=== PATIENT | male | born 1965 | race African-American/Black ===

== ENCOUNTER 2016-04-30 10:24 | Emergency (ER) | payer BC ==
[2016-04-30 10:36] VITALS: BP 163/108
--- NOTE | 2016-04-30 10:41 | ER Document Report ---
ED Medical Screen (RME) - General Stated Complaint: LEG PAIN Time seen by provider: 10:40 Mode of Arrival: Wheelchair Information source: Patient Notes: 51-year-old male developed back pain several weeks ago that radiated down his sciatic nerve. Last week he started having pain in the lateral right lower leg. Last night he started not being able to straighten his leg out without severe pain on the outside of his right lower leg. No history of DVT. No swelling to the leg. Now can't stand on it due to pain. He did have back pain this morning. Physical Exam - Vital signs Vitals: Temp Pulse Resp BP Pulse Ox 98.0 F 89 18 163/108 H 99 04/30/16 10:35 04/30/16 10:35 04/30/16 10:35 04/30/16 10:35 04/30/16 10:35 Course - Vital Signs Vital signs: Temp Pulse Resp BP Pulse Ox 98.0 F 89 18 163/108 H 99 04/30/16 10:35 04/30/16 10:35 04/30/16 10:35 04/30/16 10:35 04/30/16 10:35
--- NOTE | 2016-04-30 11:33 | ER Document Report ---
ED Neck/Back Problem - General Chief Complaint: Leg Pain Stated Complaint: LEG PAIN Mode of Arrival: Wheelchair Notes: Patient is complaining of pain in his right leg and right buttock region. He says it began as pain, like a cramp, in the right lateral calf about 3 weeks ago. About 2 weeks ago, patient noted pain in the right buttock region. These pains go and come but have gotten worse. Last night, the pain increased significantly and the patient had difficulty even walking to the bathroom during the night. Movement seems to worsen the pains. Patient had a similar episode about 3 years ago that was diagnosed as sciatica. It resolved on its own. Patient has been taking ibuprofen without relief of symptoms. He saw a local practitioner who told him that he was dehydrated. 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 His work does involve twisting and lifting heavy objects and bending a lot. TRAVEL OUTSIDE OF THE [place] IN LAST 30 DAYS: No - Related Data Allergies/Adverse Reactions: No Known Allergies Allergy (Verified 04/30/16 10:45) Past Medical History - General Information source: Patient - Social History Smoking Status: Never Smoker Cigarette use (# per day): No Chew tobacco use (# tins/day): No Frequency of alcohol use: None Drug Abuse: None Family History: Reviewed & Not Pertinent Patient has suicidal ideation: No Patient has homicidal ideation: No - Past Medical History Cardiac Medical History: Reports: Hx Hypertension Endocrine Medical History: Reports: Hx Diabetes Mellitus Type 2 Review of Systems - Review of Systems Notes: REVIEW OF SYSTEMS: CONSTITUTIONAL : Denies fever. EENT: Denies eye, ear, nose or mouth or throat pain or other symptoms. CARDIOVASCULAR: Denies chest pain. RESPIRATORY: Denies cough, chest congestion, or shortness of breath. GASTROINTESTINAL: Denies abdominal pain or nausea, vomiting, or diarrhea. GENITOURINARY: Denies difficulty or painful urinating, urinary frequency, blood in urine. MUSCULOSKELETAL: See history of present illness. Denies neck pain. Denies joint pain or swelling. SKIN: Denies rash or skin lesions. NEUROLOGICAL: Denies LOC or altered mental status. Denies headache. Denies sensory loss or motor deficits. Denies loss of control of her bladder or bowels. No paralysis. ALL OTHER SYSTEMS REVIEWED AND NEGATIVE. Physical Exam - Vital signs Vitals: Temp Pulse Resp BP Pulse Ox 98.0 F 89 18 163/108 H 99 04/30/16 10:35 04/30/16 10:35 04/30/16 10:35 04/30/16 10:35 04/30/16 10:35 Interpretation: Hypertensive - Notes Notes: PHYSICAL EXAMINATION: GENERAL: Well-appearing, in no acute distress. Appears to have apparently severe pain, primarily of the proximal lateral right lower leg, when he attempts to move his right leg, either up onto the stretcher or down from the stretcher. HEAD: Atraumatic, normocephalic. EYES: Pupils equal round and reactive to light, extraocular movements intact. ENT: oropharynx clear without exudates. Moist mucous membranes. NECK: Normal range of motion, supple. LUNGS: Breath sounds clear and equal bilaterally. HEART: Regular rate and rhythm without murmurs. ABDOMEN: Soft, nontender. No guarding or rebound. No masses. No bruits heard. BACK: No tenderness throughout entire back. EXTREMITIES: Normal range of motion without pain. Negative Homans bilaterally. No leg swelling or any other findings suggestive of blood clots. Excellent pulses in both feet. [place] toes with brisk capillary refill. NEUROLOGICAL: Normal speech, normal gait. Normal sensory, motor, and reflex exams. Very brisk and symmetrical patellar reflexes bilaterally. Negative clonus. Awake, alert, and oriented x3. Cranial nerves normal. PSYCH: Normal mood, normal affect. SKIN: Warm, dry, no rashes. Course - Re-evaluation Re-evalutation: 04/30/16 20:15 From the patient's history and physical examination, I don't think he has a herniated disc or anything that an MRI will help investigate at this time. I suggested a course of steroids for a week along with muscle relaxer and pain medicines and try to take at least a couple of days off to see if we can resolve his symptoms and that way. If he is not better in a week, advised him to return here for us to reevaluate and we will consider whether an MRI is indicated at that time. Certainly, if his symptoms worsen or he develops new symptoms in the meantime, he is advised to return here immediately for reevaluation. - Vital Signs Vital signs: Temp Pulse Resp BP Pulse Ox 98.0 F 89 18 163/108 H 99 04/30/16 10:35 04/30/16 10:35 04/30/16 10:35 04/30/16 10:35 04/30/16 10:35 Discharge - Discharge Clinical Impression: Leg pain, right Sciatica Qualifiers: Laterality: right Qualified Code(s): M54.31 - Sciatica, right side Condition: Stable Disposition: HOME, SELF-CARE Additional Instructions: Leg Pain, Nonspecific We did not find an obvious cause for your leg pain. There's no sign of blood clot, infection, or other serious disease. Possible causes of vague leg pain include muscle or joint inflammation, disc disease in the lower back, pressure on the nerves in the back, or reduced blood flow through the arteries of the leg. Rest the leg. Pain can be eased with an antiinflammatory pain medicine such as ibuprofen. If the pain involves a small area, a heating pad might help. Call the doctor or return if the leg becomes swollen, weak, discolored, or increasingly painful, or if you develop any other significant change in your health. Sciatica Your symptoms suggest "sciatica." The pain of sciatica typically radiates down the leg. Numbness in the foot or calf may also occur. Sciatica is caused by irritation of the sciatic nerve or its branches. The irritation can be due to a herniated disk in the spine, swelling and inflammation in the muscles surrounding the sciatic nerve, or direct injury of the nerve itself. Most cases of sciatica will resolve with medical treatment. Bed rest is usually recommended initially. Surgery is only necessary when the condition will not improve with rest and antiinflammatory medication. Muscle relaxers are often given if muscle soreness is present. A CAT scan of the back may be performed if a herniated disk is suspected. Re-examination is necessary if you develop increasing numbness, localized weakness in the foot or ankle, or if the pain does not respond to rest. LOW BACK PAIN: Three out of every four people will have an episode of disabling back pain during their lifetime. Most commonly the pain is due to straining of the muscles and ligaments in the low back. Usual treatment includes: (1) Rest on a firm surface. Avoid lying on your stomach. (2) Ice pack the painful area. After a few days, gentle heat may be used intermittently to relax the area, or ice packs can be continued. (3) Medication may be needed -- muscle relaxers and antiinflammatory medicines are commonly used. (4) As the back improves, exercises are prescribed to strengthen the back and abdominal muscles. Your doctor will advise you on the proper care for your back at each stage in your recovery. You may be better in a few days -- or healing may take several weeks. If new symptoms of a "herniated disc" (radiation of pain, numbness, or tingling down the back of the leg or weakness in the leg) occur, you should be re-examined. Further testing may be necessary. ORAL NARCOTIC MEDICATION: You have been given a prescription for pain control. This medication is a narcotic. It's best taken with food, as nausea can result if taken on an empty stomach. Don't operate machinery or drive within six hours of taking this medication. Do not combine this medicine with alcohol, or with any medication which can cause sedation (such as cold tablets or sleeping pills) unless you get permission from the physician. Narcotics tend to cause constipation. If possible, drink plenty of fluids and eat a diet high in fiber and fruits. MUSCLE RELAXERS: Muscle relaxing medications are usually prescribed for acute muscle spasm or injury to the neck and back. They are often combined with antiinflammatory pain medication for increased relief. You may stop the muscle relaxer when the pain and stiffness have improved. Start the medication again if spasms recur. Muscle relaxers may cause drowsiness, especially with the first dose. Do not operate machinery or drive while under the effects of the medication. Most muscle relaxers last up to 24 hours. Do not combine the medication with alcohol. STEROID MEDICATION: You have been given a medicine of the cortisone/steroid class. This medication is used to control inflammation or allergy. It is usually only given for a short period of time, until the acute process subsides. There are usually no side effects from short-term use of cortisone-like medications. Some persons feel an increased sense of well-being and are not sleepy at bedtime. Long-term use of cortisone medications is best avoided, unless required for a severe condition. If your condition does not remit, or relapses after the course of corticosteroid medication, you should consult your physician. ICE PACKS: Apply ice packs frequently against the painful area. Many different schedules are recommended, such as "20 minutes on, 20 minutes off" or "one hour ice, two hours rest." If you need to work, you may need to go longer between ice treatments. You should plan to have the area ice packed AT LEAST one fourth of the time. The ice should be applied over the wrap, tape, or splint, or over a layer of cloth -- not directly against the skin. Some ice bags have a built-in cloth and can be put directly on the skin. WARM PACKS: After approximately two days, apply gentle heat (such as a heating pad or hot water bottle) for about 20 to 30 minutes about every two hours -- at least four times daily. Warmth and elevation will help you make a more rapid recovery , and will ease the pain considerably. Do not use HOT heat, and never apply heat for longer than 30 minutes. The continuous heat can invisibly damage skin and muscles -- even when no burn is seen on the surface. Damaged muscles can make you MORE sore. FOLLOW-UP CARE: If you have been referred to a physician for follow-up care, call the physician s office for an appointment as you were instructed or within the next two days. If you experience worsening or a significant change in your symptoms, notify the physician immediately or return to the Emergency Department at any time for re-evaluation. If you are not improving any in one week, you should follow-up with your primary care physician or you may return for us to reevaluate your condition. I will be here working at 9 AM next Friday and Friday. If your condition worsens significantly at any time, return for immediate reevaluation. Conditions such as difficulty controlling her bowels or your bladder, inability to move your right leg inability to walk, are reasons to return for immediate reevaluation. Prescriptions: Methocarbamol [Robaxin 500 mg Tablet] 1,000 mg PO QID #60 tablet Oxycodone HCl/Acetaminophen [Percocet 5-325 mg Tablet] 1 - 2 tab PO Q4H PRN #25 tablet PRN Reason: Prednisone [Deltasone 10 mg Tablet] 10 mg PO ASDIR PRN #28 tablet PRN Reason: Forms: Return to Work Referrals: [Primary Care Provider] - Follow up as needed
== END 2016-04-30 11:41 | disposition home or self-care (01) ==
LOC: ER 10:24
DX: M54.31 Sciatica, right side (principal); M79.661 Pain in right lower leg; M25.551 Pain in right hip; E11.9 Type 2 diabetes mellitus without complications; I10 Essential (primary) hypertension
CPT/HCPCS: 99283

== ENCOUNTER 2017-07-09 06:57 | Emergency (ER) | payer SELFPAY ==
[2017-07-09] MEDS ORDERED: PROCHLORPERAZINE EDISYLATE INJ 10 MG/2 ML VIAL IV ONE (07:31)
[2017-07-09] MEDS ORDERED: NORMAL SALINE 1000 ML 1,000 ML IV ONE (07:31)
[2017-07-09] MEDS ORDERED: DIPHENHYDRAMINE HCL 50 MG/ML VIAL IV ONE (07:33)
[2017-07-09] MEDS ORDERED: ACETAMINOPHEN 325 MG TABLET PO ONE (07:33)
--- NOTE | 2017-07-09 07:40 | ER Document Report ---
ED General - General Chief Complaint: Flu Symptoms Stated Complaint: FLU LIKE SYMPTOMS Time Seen by Provider: 07/09/17 07:29 Mode of Arrival: Ambulatory Information source: Patient Notes: 52-year-old male complaining of gradual onset of 5/5 all over headache and bilateral hip pain at 1130 last night. He has a nonproductive cough that started at 5 PM. No sore throat runny nose. No chest pain or shortness of breath. No dominant pain. No nausea vomiting or diarrhea. No genitalia or groin pain he is a diabetic and hypertensive and occasionally takes lisinopril 20 mg that belongs to his because he could not afford the [employer] insurance and went up 300%. TRAVEL OUTSIDE OF THE [place] IN LAST 30 DAYS: No - HPI Onset: Yesterday - 11:30 PM Onset/Duration: Gradual - Related Data Allergies/Adverse Reactions: No Known Allergies Allergy (Verified 04/30/16 10:45) Past Medical History - General Information source: Patient - Social History Smoking Status: Never Smoker Frequency of alcohol use: None Drug Abuse: None Lives with: Spouse/Significant other Family History: Reviewed & Not Pertinent - Past Medical History Cardiac Medical History: Reports: Hx Hypertension Endocrine Medical History: Reports: Hx Diabetes Mellitus Type 2 - Metformin Surgical Hx: Negative Review of Systems - Review of Systems Constitutional: See HPI EENT: No symptoms reported Cardiovascular: No symptoms reported Respiratory: No symptoms reported Gastrointestinal: No symptoms reported Genitourinary: No symptoms reported Male Genitourinary: No symptoms reported Musculoskeletal: See HPI Skin: No symptoms reported Hematologic/Lymphatic: No symptoms reported Neurological/Psychological: See HPI Physical Exam - Vital signs Vitals: Temp Pulse Resp BP Pulse Ox 99.1 F 111 H 16 205/120 H 96 07/09/17 07:02 07/09/17 07:02 07/09/17 07:02 07/09/17 07:02 07/09/17 07:02 Interpretation: Normal - General General appearance: Appears well, Alert, Anxious In distress: None - HEENT Head: Normocephalic, Atraumatic Eyes: Normal Pupils: PERRL Tympanic membrane: Normal Neck: Supple. No: Lymphadenopathy, Thyromegally - Respiratory Respiratory status: No respiratory distress Chest status: Nontender Breath sounds: Normal Chest palpation: Normal - Cardiovascular Rhythm: Regular Heart sounds: Normal auscultation Murmur: No - Abdominal Inspection: Normal Distension: No distension Bowel sounds: Normal Tenderness: Nontender Organomegaly: No organomegaly - Back Back: Normal, Nontender - Extremities General upper extremity: Normal inspection, Nontender, Normal color, Normal ROM , Normal temperature General lower extremity: Normal inspection, Nontender, Normal color, Normal ROM , Normal temperature, Normal weight bearing. No: Christie's sign - Neurological Neuro grossly intact: Yes Cognition: Normal Orientation: AAOx4 Turner Coma Scale Eye Opening: Spontaneous [place] Coma Scale Verbal: Oriented [place] Coma Scale Motor: Obeys Commands [place] Coma Scale Total: 15 Speech: Normal Motor strength normal: LUE, RUE, LLE, RLE Sensory: Normal - Psychological Associated symptoms: Normal affect, Normal mood - Skin Skin Temperature: Warm Skin Moisture: Dry Skin Color: Normal Course - Re-evaluation Re-evalutation: 07/09/17 10:51 Chest x-ray shows possible early pneumonia in the right, other labs are negative. Wiill tx for pneumonia, start back on his metformin and lisinopril. 07/10/17 19:50 - Vital Signs Vital signs: Temp Pulse Resp BP Pulse Ox 99.1 F 111 H 23 H 185/115 H 96 07/09/17 11:03 07/09/17 07:02 07/09/17 10:59 07/09/17 10:59 07/09/17 10:59 - Laboratory Result Diagrams: 07/09/17 07:54 07/09/17 07:54 Laboratory results interpreted by me: 07/09/17 07/09/17 07/09/17 07:54 07:54 07:54 Hgb 13.4 L MCV 78 L MCH 25.9 L RDW 14.3 H Seg Neutrophils % 80.4 H Lymphocytes % 7.3 L APTT 40.0 H Creatinine 1.40 H Est GFR (Non-Af Amer) 53 L Glucose 169 H Urine Protein Urine Glucose (UA) 07/09/17 09:27 Hgb MCV MCH RDW Seg Neutrophils % Lymphocytes % APTT Creatinine Est GFR (Non-Af Amer) Glucose Urine Protein 100 H Urine Glucose (UA) 50 H Discharge - Discharge Clinical Impression: Cough, Elevated serum creatinine Pneumonia Qualifiers: Pneumonia type: due to unspecified organism Laterality: bilateral Lung location : lower lobe of lung Qualified Code(s): J18.1 - Lobar pneumonia, unspecified organism Hip pain Qualifiers: Laterality: right Qualified Code(s): M25.551 - Pain in right hip Hypertension Qualifiers: Hypertension type: essential hypertension Qualified Code(s): I10 - Essential ( primary) hypertension Diabetes Qualifiers: Diabetes mellitus type: type 2 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: unspecified terminal system operator insulin use status Diabetes mellitus complication status: without complication Qualified Code(s): E11.9 - Type 2 diabetes mellitus without complications Condition: Good Disposition: HOME, SELF-CARE Instructions: Acetaminophen, Angiotensin Converting Enzyme Inhibitor Medication ([facility]), Diabetes ([facility]), Glucophage ([facility]), High Blood Pressure, Requiring Treatment ([facility]), Levofloxacin, Pneumonia ([facility]) Additional Instructions: plenty of fluids to er if worse levofloxacin for the pneumonia take the metformin 500mg twice a day take the lisinopril 20mg daily you need to see family pracitice or internal medicine doctor for recheck- your creatinine (kidney function) is elevated) copy of all labs Prescriptions: Levofloxacin [Levaquin] 750 mg PO DAILY #4 tablet Lisinopril [Zestril] 20 mg PO DAILY #30 tablet Metformin HCl [Glucophage] 500 mg PO BID #60 tablet Forms: Return to Work Referrals: ALESSIO FAROOQ MD [ACTIVE STAFF] - Follow up in 1 week
--- NOTE | 2017-07-09 07:57 | RADIOLOGY REPORT (SQ) ---
EXAM DESCRIPTION: CHEST PA/LAT CLINICAL HISTORY: cough, tachycardia COMPARISON: None. FINDINGS: Frontal and lateral views of the chest. Tortuosity of the thoracic aorta. Heart is not enlarged. Eventration of the right hemidiaphragm. Hazy right basilar opacity. No pneumothorax or pleural effusion. Degenerative change of the spine. Leads overlie the chest. Upper abdominal soft tissues are unremarkable. IMPRESSION: 1. Hazy right basilar opacity. This may be related to low lung volumes and atelectasis however developing pneumonic process could produce a similar appearance. Continued radiographic follow-up to resolution recommended.
[2017-07-09 08:38] LABS: ABSOLUTE LYMPHOCYTES (AUTO) 0.5 10^3/uL (0.5-4.7); ABSOLUTE MONOCYTES (AUTO) 0.7 10^3/uL (0.1-1.4); BASOPHILS % (AUTO) 0.4 % (0-2); EOSINOPHILS % (AUTO) 0.6 % (0-6); HEMOGLOBIN 13.4 g/dL (13.5-17.0); LYMPHOCYTES % (AUTO) 7.3 % (13-45); MEAN CORPUSCULAR HEMOGLOBIN 25.9 pg (27.0-33.4); MEAN CORPUSCULAR HGB CONC 33.4 g/dL (32.0-36.0); MEAN CORPUSCULAR VOLUME 78 fl (80-97); MONOCYTES % (AUTO) 11.3 % (3-13); PLATELET COUNT 260 10^3/uL (150-450); RED BLOOD COUNT 5.16 10^6/uL (4.35-5.55); RED CELL DISTRIBUTION WIDTH 14.3 % (11.5-14.0); SEGMENTED NEUTROPHILS % (AUTO) 80.4 % (42-78); TOTAL CELLS COUNTED % (AUTO) 100 %; WHITE BLOOD COUNT 6.2 10^3/uL (4.0-10.5)
[2017-07-09 08:39] LABS: PROTHROMBIN TIME 12.8 SEC (11.4-15.4)
--- NOTE | 2017-07-09 08:41 | RADIOLOGY REPORT (SQ) ---
EXAM DESCRIPTION: CT HEAD WITHOUT COMPLETED DATE/TIME: 07/09/2017 7:47 am REASON FOR STUDY: headache COMPARISON: CT brain 09/17/2009 TECHNIQUE: Axial images acquired through the brain without intravenous contrast. Images reviewed wi th bone, brain and subdural windows. Images stored on PACS. All CT scanners at this facility use dose modulation, iterative reconstruction, and/or weight based d osing when appropriate to reduce radiation dose to as low as reasonably achievable (ALARA). [facility]: Dose Right [facility]: CareDose [facility]: Dose Right [facility]: Teradose 4D [facility]: Arrayent RADIATION DOSE: CT Rad equipment meets quality standard of care and radiation dose reduction techniq ues were employed. CTDIvol: 64.6 mGy. DLP: 1163 mGy-cm. mGy. LIMITATIONS: None. FINDINGS: VENTRICLES: Normal size and contour. CEREBRUM: No masses. No hemorrhage. No midline shift. No evidence for acute infarction. Normal gra y/white matter differentiation. No areas of low density in the white matter. CEREBELLUM: No masses. No hemorrhage. No alteration of density. No evidence for acute infarction. EXTRAAXIAL SPACES: No fluid collections. No masses. ORBITS AND GLOBE: No intra- or extraconal masses. Normal contour of globe without masses. CALVARIUM: No fracture. PARANASAL SINUSES: No fluid or mucosal thickening. SOFT TISSUES: No mass or hematoma. OTHER: No other significant finding. IMPRESSION: NORMAL BRAIN CT WITHOUT CONTRAST. EVIDENCE OF ACUTE STROKE: NO. COMMENT: Quality ID # [id number]: Final reports with documentation of one or more dose reduction techniques (e.g., Automated exposure control, adjustment of the mA and/or kV according to patient size, use of iterative reconstruction technique) TECHNICAL DOCUMENTATION: JOB ID: [id number] [employer]- All Rights Reserved Reading location - IP/workstation name: ON LICENSE OF [facility]
[2017-07-09 08:54] LABS: ALANINE AMINOTRANSFERASE 33 U/L (21-72); ALBUMIN 4.2 g/dL (3.5-5.0); ALKALINE PHOSPHATASE 86 U/L (38-126); ANION GAP 13 (5-19); ASPARTATE AMINO TRANSFERASE 28 U/L (17-59); BILIRUBIN,DIRECT 0.2 mg/dL (0.0-0.4); BILIRUBIN,TOTAL 0.3 mg/dL (0.2-1.3); BLOOD UREA NITROGEN 14 mg/dL (7-20); CALCIUM 9.4 mg/dL (8.4-10.2); CARBON DIOXIDE 26 mmol/L (22-30); CHLORIDE 100 mmol/L (98-107); GLUCOSE 169 mg/dL (75-110); POTASSIUM 4.5 mmol/L (3.6-5.0); TOTAL PROTEIN 7.1 g/dL (6.3-8.2)
[2017-07-09] MEDS ORDERED: AZITHROMYCIN 250 MG TABLET PO ONE (08:56)
[2017-07-09] MEDS ORDERED: KETOROLAC TROMETHAMINE INJ/PF 30 MG/1 ML SDV IV ONE (08:57)
--- NOTE | 2017-07-09 09:01 | EKG REPORT ---
SEVERITY:- ABNORMAL ECG - SINUS RHYTHM BIATRIAL ABNORMALITIES LEFT VENTRICULAR HYPERTROPHY ANTERIOR Q WAVES, POSSIBLY DUE TO LVH : Confirmed by: Manju Payne 09-Jul-2017 09:00:46
[2017-07-09 09:53] LABS: APPEARANCE,URINE CLEAR; BILIRUBIN,URINE NEGATIVE (NEGATIVE); COLOR,URINE STRAW; GLUCOSE, URINE 50 mg/dL (NEGATIVE); KETONES,URINE NEGATIVE (NEGATIVE); LEUKOCYTE ESTERASE,URINE NEGATIVE (NEGATIVE); NITRITE,URINE NEGATIVE (NEGATIVE); PROTEIN,URINE 100 mg/dL (NEGATIVE); URINE SPECIFIC GRAVITY 1.009; UROBILINOGEN,URINE NEGATIVE mg/dL (<2.0)
[2017-07-09 11:00] VITALS: BP 185/115
[2017-07-09] MEDS ORDERED: LEVOFLOXACIN 750 MG TABLET PO ONE (11:06)
== END 2017-07-09 11:24 | disposition home or self-care (01) ==
LOC: ER 06:57
DX: J18.1 Lobar pneumonia, unspecified organism (principal); E11.9 Type 2 diabetes mellitus without complications; R79.89 Other specified abnormal findings of blood chemistry; R51 Headache; M25.551 Pain in right hip; M25.552 Pain in left hip; R05 Cough; I10 Essential (primary) hypertension
CPT/HCPCS: 93005; 99284; 96361; 96374; 96375; 36415; 84443; 85025; 85610; 85730; 80053; 81001; 71046; 70450; 93010; J1200; J1885; J0780; J7030

== ENCOUNTER 2018-03-07 14:08 | Emergency (ER) | payer SELFPAY ==
--- NOTE | 2018-03-07 15:08 | ER Document Report ---
HPI - HPI Patient complains to provider of: Hypertension Pain Level: 0 Context: Patient is a 53-year-old male presenting to the emergency department complaining of high blood pressure. Patient states he has had blurry vision for the last couple of weeks. States he went to [facility] Mansoor Cantu today who told him that he had bilateral retinal hemorrhages. He has the paperwork from this doctor in the room with him and I have reviewed it. He has an appointment with a retinal specialist in 2 days. Because the patient does not have a primary care provider at the [facility] suggested coming to the emergency room to be placed back on his antihypertension medications. Patient states he used to take lisinopril 20 mg but has been without it for the last couple of months because he lost his insurance. Patient states besides hypertension he does have borderline diabetes He is supposed to be taking lisinopril 25 mg and metformin. Patient denies any allergies. Patient denies cigarette smoking, illicit drug use, EtOH use. Patient is denying headache, chest pain, shortness of breath, dizziness, lightheadedness, or any other symptoms. Patient states he does have intermittent blurred vision which is why he initially presented to the ophthalmology office. Past Medical History - General Information source: Patient - Social History Smoking Status: Never Smoker Lives with: Family Family History: Reviewed & Not Pertinent - Past Medical History Cardiac Medical History: Reports: Hx Hypertension Endocrine Medical History: Reports: Hx Diabetes Mellitus Type 2 - Metformin Renal/ Medical History: Denies: Hx Peritoneal Dialysis Vertical Provider Document - CONSTITUTIONAL Agree With Documented VS: Yes Notes: GENERAL: Alert, interacts well. No acute distress. HEAD: Normocephalic, atraumatic. EYES: Pupils equal, round, and reactive to light. Extraocular movements intact. ENT: Oral mucosa moist, tongue midline. NECK: Full range of motion. Supple. Trachea midline. LUNGS: Clear to auscultation bilaterally, no wheezes, rales, or rhonchi. No respiratory distress. HEART: Regular rate and rhythm. No murmur ABDOMEN: Soft, non-tender. Non-distended. Bowel sounds present in all 4 quadrants. EXTREMITIES: Moves all 4 extremities spontaneously. No edema, normal radial and dorsalis pedis pulses bilaterally. No cyanosis. 5 out of 5 strength all 4 extremities. BACK: no cervical, thoracic, lumbar midline tenderness. No saddle anesthesia, normal distal neurovascular exam. NEUROLOGICAL: Alert and oriented x3. Normal speech. cranial nerves II through XII grossly intact. Finger to nose to finger test within normal limits. PSYCH: Normal affect, normal mood. SKIN: Warm, dry, normal turgor. No rashes or lesions noted. - INFECTION CONTROL TRAVEL OUTSIDE OF THE [place] IN LAST 30 DAYS: No Course - Re-evaluation Re-evalutation: 03/07/18 15:07 Discussed this case with Dr. Duncan who states if the patient has already seen an [facility] today and has an appointment with his retinal specialist and it is okay to start the patient back on his lisinopril. Discussed at length with patient that he needs to make sure he holds his appointment with the retinal specialist or follows up with the [facility] if he has continued better vision. Discussed use of [facility] or [facility] to get a primary care provider. Vital signs reviewed, shows hypertension. Nursing notes reviewed - Vital Signs Vital signs: Temp Pulse Resp BP Pulse Ox 98.7 F 104 H 18 175/104 H 97 03/07/18 14:26 03/07/18 14:26 03/07/18 14:26 03/07/18 14:26 03/07/18 14:26 Discharge - Discharge Clinical Impression: Hypertension Qualifiers: Hypertension type: unspecified Qualified Code(s): I10 - Essential (primary) hypertension Condition: Stable Disposition: HOME, SELF-CARE Instructions: High Blood Pressure ([facility]) Additional Instructions: As we discussed you have been seen and treated in the emergency department for hypertension. Please make sure you keep your appointments with the retinal specialist and continue returning to the [facility]. Please follow-up with [facility] or [facility] in order to get yourself a primary care provider. Please return to the emergency room for any other concerning symptoms. Prescriptions: Lisinopril 20 mg PO DAILY #30 tablet Referrals: [facility] [Provider Group] - Follow up as needed [facility] [Provider Group] - Follow up as needed
[2018-03-07 15:13] VITALS: BP 187/118
== END 2018-03-07 15:18 | disposition home or self-care (01) ==
LOC: ER 14:08
DX: I10 Essential (primary) hypertension (principal); H53.8 Other visual disturbances; E11.9 Type 2 diabetes mellitus without complications; Z79.84 Long term (current) use of oral hypoglycemic drugs
CPT/HCPCS: 82962; 99283

== ENCOUNTER 2020-03-01 10:36 | Emergency (ER) | payer BC ==
--- NOTE | 2020-03-01 11:34 | ER Document Report ---
ED Medical Screen (RME) - General Chief Complaint: Dizziness Stated Complaint: DIZZINESS Time Seen by Provider: 03/01/20 11:30 Mode of Arrival: Ambulatory Information source: Patient Notes: 55-year-old male presented to ED for near syncopal episode around 1030 this morning. He states he had to hold onto the sink but he did not pass out did not get sweaty has any pain at the time. States he is borderline diabetic he is on blood pressure medicines lisinopril he states he was supposed to take another blood pressure medicine but does not remember the name of it and had bad effects from it so he does not take it. States he does not eat till after 4 PM due to fasting. He states he actually feels much better now than he did earlier he still has not eaten anything. We will get blood urine EKG. States last he ate was at 8 PM. I have greeted and performed a rapid initial assessment of this patient. A comprehensive ED assessment and evaluation of the patient, analysis of test res ults and completion of medical decision making process will be conducted by an additional ED providers. TRAVEL OUTSIDE OF THE [place] IN LAST 30 DAYS: No - Related Data Allergies/Adverse Reactions: No Known Allergies Allergy (Verified 03/07/18 14:11) Past Medical History - Past Medical History Cardiac Medical History: Reports: Hx Hypertension Endocrine Medical History: Reports: Hx Diabetes Mellitus Type 2 - Metformin Renal/ Medical History: Denies: Hx Peritoneal Dialysis Physical Exam - Vital signs Vitals: Temp Pulse Resp BP Pulse Ox 98.7 F 71 22 H 201/115 H 100 03/01/20 10:51 03/01/20 10:51 03/01/20 10:51 03/01/20 10:51 03/01/20 10:51 Course - Vital Signs Vital signs: Temp Pulse Resp BP Pulse Ox 98.7 F 71 22 H 201/115 H 100 03/01/20 10:51 03/01/20 10:51 03/01/20 10:51 03/01/20 10:51 03/01/20 10:51
[2020-03-01 12:29] LABS: ABSOLUTE LYMPHOCYTES (AUTO) 1.3 10^3/uL (0.5-4.7); ABSOLUTE MONOCYTES (AUTO) 0.4 10^3/uL (0.1-1.4); ABSOLUTE NEUT (AUTO) 3.3 10^3/uL (1.7-8.2); BASOPHILS % (AUTO) 0.3 % (0-2); EOSINOPHILS % (AUTO) 0.7 % (0-6); HEMATOCRIT 36.4 % (37.9-51.0); HEMOGLOBIN 12.1 g/dL (13.5-17.0); LYMPHOCYTES % (AUTO) 25.8 % (13-45); MEAN CORPUSCULAR HGB CONC 33.2 g/dL (32.0-36.0); MEAN CORPUSCULAR VOLUME 79 fl (80-97); PLATELET COUNT 245 10^3/uL (150-450); RED BLOOD COUNT 4.64 10^6/uL (4.35-5.55); RED CELL DISTRIBUTION WIDTH 14.9 % (11.5-14.0); SEGMENTED NEUTROPHILS % (AUTO) 65.2 % (42-78); TOTAL CELLS COUNTED % (AUTO) 100 %; WHITE BLOOD COUNT 5.1 10^3/uL (4.0-10.5)
[2020-03-01 12:34] LABS: APPEARANCE,URINE SLIGHTLY-CLOUDY; BILIRUBIN,URINE NEGATIVE (NEGATIVE); COLOR,URINE YELLOW; GLUCOSE, URINE NEGATIVE (NEGATIVE); KETONES,URINE NEGATIVE (NEGATIVE); LEUKOCYTE ESTERASE,URINE NEGATIVE (NEGATIVE); NITRITE,URINE NEGATIVE (NEGATIVE); PROTEIN,URINE 100 mg/dL (NEGATIVE); URINE SPECIFIC GRAVITY 1.011; UROBILINOGEN,URINE NEGATIVE mg/dL (<2.0)
[2020-03-01 12:47] LABS: ALBUMIN 4.4 g/dL (3.5-5.0); ALKALINE PHOSPHATASE 76 U/L (38-126); ANION GAP 10 (5-19); ASPARTATE AMINO TRANSFERASE 30 U/L (17-59); BILIRUBIN,DIRECT 0.1 mg/dL (0.0-0.4); BILIRUBIN,TOTAL 0.5 mg/dL (0.2-1.3); BLOOD UREA NITROGEN 20 mg/dL (7-20); CALCIUM 9.9 mg/dL (8.4-10.2); CARBON DIOXIDE 27 mmol/L (22-30); CHLORIDE 100 mmol/L (98-107); GLUCOSE 105 mg/dL (75-110); POTASSIUM 4.5 mmol/L (3.6-5.0); TOTAL PROTEIN 7.4 g/dL (6.3-8.2)
--- NOTE | 2020-03-01 12:57 | RADIOLOGY REPORT (SQ) ---
3 2 EXAM DESCRIPTION: CHEST 2 VIEWS IMAGES COMPLETED DATE/TIME: 03/01/2020 12:31 pm REASON FOR STUDY: near syncope COMPARISON: 07/09/2017 EXAM PARAMETERS: NUMBER OF VIEWS: two views TECHNIQUE: Digital Frontal and Lateral radiographic views of the chest acquired. RADIATION DOSE: NA LIMITATIONS: none FINDINGS: LUNGS AND PLEURA: No opacities, masses or pneumothorax. No pleural effusion. MEDIASTINUM AND HILAR STRUCTURES: No masses or contour abnormalities. HEART AND VASCULAR STRUCTURES: Heart normal size. No evidence for failure. BONES: No acute findings. HARDWARE: None in the chest. OTHER: No other significant finding. IMPRESSION: NO ACUTE RADIOGRAPHIC FINDING IN THE CHEST. TECHNICAL DOCUMENTATION: JOB ID: [id number] 2010 [employer]- All Rights Reserved Reading location - IP/workstation name: [email or web address]
[2020-03-01 15:20] VITALS: BP 189/96
--- NOTE | 2020-03-01 15:27 | ER Document Report ---
ED General - General Chief Complaint: Near Syncope Stated Complaint: DIZZINESS Time Seen by Provider: 03/01/20 11:30 Primary Care Provider: ELIEL ADAMSON PA-C [Primary Care Provider] - Follow up as needed Mode of Arrival: Ambulatory Information source: Patient TRAVEL OUTSIDE OF THE [place] IN LAST 30 DAYS: No - HPI Notes: Patient presents with dizziness. Patient states he was cleaning some chicken at the sink this morning when he felt that the room was spinning. He states he now feels better. He states he was feeling normal up until that time. He denies any pain anywhere. He had no shortness of breath. No recent cough cold or congestion. He has had no previous episodes of dizziness that were significant. He denies any type of syncope. Patient denies any new medications. No new [id number] supplements. - Related Data Allergies/Adverse Reactions: No Known Allergies Allergy (Verified 03/07/18 14:11) Home Medications: Lisinopril Past Medical History - General Information source: Patient - Social History Smoking Status: Never Smoker Frequency of alcohol use: None Drug Abuse: None Family History: Reviewed & Not Pertinent Patient has homicidal ideation: No - Past Medical History Cardiac Medical History: Reports: Hx Hypertension Endocrine Medical History: Reports: Hx Diabetes Mellitus Type 2 - Metformin Renal/ Medical History: Denies: Hx Peritoneal Dialysis Review of Systems - Review of Systems Constitutional: denies: Chills, Fever Cardiovascular: denies: Chest pain, Palpitations Respiratory: denies: Cough, Short of breath -: Yes All other systems reviewed and negative Physical Exam - Vital signs Vitals: Temp Pulse Resp BP Pulse Ox 98.7 F 71 22 H 201/115 H 100 03/01/20 10:51 03/01/20 10:51 03/01/20 10:51 03/01/20 10:51 03/01/20 10:51 Interpretation: Hypertensive - General General appearance: Appears well, Alert - HEENT Head: Normocephalic, Atraumatic Eyes: Normal Pupils: PERRL - Respiratory Respiratory status: No respiratory distress Chest status: Nontender Breath sounds: Normal Chest palpation: Normal - Cardiovascular Rhythm: Regular Heart sounds: Normal auscultation Murmur: No - Abdominal Inspection: Normal Distension: No distension Bowel sounds: Normal Tenderness: Nontender Organomegaly: No organomegaly - Back Back: Normal, Nontender - Extremities General upper extremity: Normal inspection, Nontender, Normal color, Normal ROM, Normal temperature General lower extremity: Normal inspection, Nontender, Normal color, Normal ROM, Normal temperature, Normal weight bearing. No: Christie's sign - Neurological Neuro grossly intact: Yes Cognition: Normal Orientation: AAOx4 [place] Coma Scale Eye Opening: Spontaneous [place] Coma Scale Verbal: Oriented [place] Coma Scale Motor: Obeys Commands [place] Coma Scale Total: 15 Speech: Normal Cranial nerves: Normal Cerebellar coordination: Normal. 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 No: Pronator drift Sensory: Normal - Psychological Associated symptoms: Normal affect, Normal mood - Skin Skin Temperature: Warm Skin Moisture: Dry Skin Color: Normal Course - Vital Signs Vital signs: Temp Pulse Resp BP Pulse Ox 98.7 F 55 L 22 H 189/96 H 100 03/01/20 10:51 03/01/20 15:19 03/01/20 10:51 03/01/20 15:19 03/01/20 10:51 - Laboratory Result Diagrams: 03/01/20 12:10 03/01/20 12:10 Laboratory results interpreted by me: 03/01/20 03/01/20 03/01/20 12:10 12:10 12:10 Hgb 12.1 L Hct 36.4 L MCV 79 L MCH 26.0 L RDW 14.9 H Sodium 136.5 L Creatinine 1.68 H Est GFR ( Amer) 51 L Est GFR (MDRD) Non-Af 42 L Urine Protein 100 H - Diagnostic Test Radiology reviewed: Image reviewed, Reports reviewed - EKG Interpretation by Sc EKG shows normal: Sinus rhythm Rate: Bradycardia - 57 Rhythm: NSR [place]/QRS: Left axis deviation Discharge - Discharge Clinical Impression: Uncontrolled hypertension Condition: Stable Disposition: HOME, SELF-CARE Instructions: Dizziness ([facility]) Additional Instructions: Dr. Montoya's office will contact you concerning your follow-up appointment Prescriptions: Hydrochlorothiazide [Hydrodiuril 25 mg Tablet] 25 mg PO QAM #30 tablet Forms: Elevated Blood Pressure, Return to Work Referrals: PATRICIA MONTOYA MD [ACTIVE STAFF] - Follow up tomorrow
[2020-03-01] MEDS ORDERED: HYDROCHLOROTHIAZIDE 25 MG TABLET PO ONE (15:29)
--- NOTE | 2020-03-01 18:03 | EKG REPORT ---
SEVERITY:- ABNORMAL ECG - SINUS RHYTHM PROBABLE LEFT ATRIAL ABNORMALITY LEFT VENTRICULAR HYPERTROPHY : Confirmed by: Manju Payne 01-Mar-2020 18:02:04
== END 2020-03-01 15:35 | disposition home or self-care (01) ==
LOC: ER 10:36
DX: I10 Essential (primary) hypertension (principal); R00.1 Bradycardia, unspecified; R42 Dizziness and giddiness; E11.9 Type 2 diabetes mellitus without complications; Z79.899 Other long term (current) drug therapy
CPT/HCPCS: 36415; 71046; 80053; 81001; 83690; 84484; 85025; 93005; 93010; 99285